=== PATIENT | male | born 1995 | race Caucasian/White ===

== ENCOUNTER 2022-07-21 01:47 | Emergency (ER) | payer OTHER ==
[2022-07-21 01:56] VITALS: O2SAT 96
--- NOTE | 2022-07-21 02:35 | ERPHSYRPT ---
- History of Present Illness Time Seen by Provider: 07/21/22 02:10 Source: patient, family Exam Limitations: no limitations Patient Subjective Stated Complaint: fever since 08/05/22 with PICC insertion, PICC line removed 07/20/22 and is having pain where PICC line was. Triage Nursing Assessment: pt brought into ER via wheelchair. Pt c/o rt arm/shoulder pain from picc line that was removed today. Pt had PICC line in for IV infusion due to rt foot injury/wound. Pt had been running fever ever since PICC line placement on 08/05/22 but is afebrile at this time. Rt upper arm/shoulder is tender. Pt is nauseated. Physician History: This is a 26-year-old white male who had a PICC line in place for a few weeks for infusion of antibiotic to treat a wound on the bottom of his right foot that was removed yesterday after receiving a dose of antibiotics. It was removed because the patient was having pain in the distribution site of the PICC line. It is unknown if the tip of the PICC line was cultured at the time of removal. Patient specifically states he does not want any pain medicine. He just is concerned that there is something going on in his chest and in the distribution side of the PICC line. Patient has a prescription from his infectious disease physician to have blood cultures x2 drawn and a urinalysis with a urine culture. 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 Allergies/Adverse Reactions: No Known Drug Allergies Allergy (Verified 07/21/22 02:19) Home Medications: Amlodipine Besylate 1 tab PO DAILY 07/21/22 [History] Hx Tetanus, Diphtheria Vaccination/Date Given: Yes Hx Influenza Vaccination/Date Given: No Hx Pneumococcal Vaccination/Date Given: No Immunizations Up to Date: Yes Travel Risk - International Travel Have you traveled outside of the country in past 3 weeks: No - Coronavirus Screening Are you exhibiting any of the following symptoms?: Yes Symptoms: Fever Close contact with a COVID-19 positive Pt in past 14-21 Days: No - Vaccine Status Have you recieved a Covid-19 vaccination: No - Review of Systems Constitutional: No Symptoms Eyes: No Symptoms Ears, Nose, & Throat: No Symptoms Respiratory: No Symptoms Cardiac: No Symptoms Abdominal/Gastrointestinal: No Symptoms Genitourinary Symptoms: No Symptoms Musculoskeletal: No Symptoms Skin: Other (Skin tenderness along the distribution site of the former PICC line in the right upper extremity) Neurological: No Symptoms Psychological: No Symptoms Endocrine: No Symptoms Hematologic/Lymphatic: No Symptoms Immunological/Allergic: No Symptoms All Other Systems: Reviewed and Negative - Past Medical History Pertinent Past Medical History: No Neurological History: No Pertinent History ENT History: No Pertinent History Cardiac History: Hypertension Respiratory History: No Pertinent History Endocrine Medical History: No Pertinent History Musculoskeletal History: Fractures GI Medical History: No Pertinent History History: No Pertinent History Psycho-Social History: No Pertinent History Male Reproductive Disorders: No Pertinent History Other Medical History: HEART MURMUR, Fx to rt foot, wound to rt foot - Past Surgical History Past Surgical History: Yes Neuro Surgical History: No Pertinent History Cardiac: No Pertinent History Respiratory: No Pertinent History Gastrointestinal: No Pertinent History Genitourinary: No Pertinent History Musculoskeletal: No Pertinent History Male Surgical History: No Pertinent History Other Surgical History: PICC Line - Social History Smoking Status: Never smoker Exposure to second hand smoke: Yes Drug Use: none Patient Lives Alone: No - Nursing Vital Signs Nursing Vital Signs: Initial Vital Signs Temperature 98.7 F 07/21/22 01:53 Pulse Rate 134 H 07/21/22 01:53 Respiratory Rate 20 07/21/22 01:53 Blood Pressure 170/106 07/21/22 01:53 O2 Sat by Pulse Oximetry 96 07/21/22 01:53 Pain Scale Pain Intensity 8 - Physical Exam General Appearance: no apparent distress, alert, other (Angry and frustrated) Eye Exam: PERRL/EOMI, eyes nml inspection ENT Exam: normal ENT inspection, no apparent trauma, hearing grossly normal Neck Exam: normal inspection, non-tender, supple, full range of motion Respiratory Exam: normal breath sounds, chest non-tender, lungs clear, no respiratory distress, no accessory muscle use, No respiratory distress Cardiovascular/Chest Exam: normal heart sounds, regular rate/rhythm Gastrointestinal/Abdominal Exam: soft, non tender, no distention, no mass, no guarding, no ecchymosis, no organomegaly, no pulsatile mass, normal bowel sounds Rectal Exam: not done Extremity Exam: normal range of motion, normal inspection, normal capillary refill, no calf tenderness, no pedal edema, pelvis stable Neurologic Exam: alert, oriented x 3, cooperative, clinical documentation specialist II-XII nml as tested Skin Exam: other (Tender skin overlying the distribution of the former PICC line site) Lymphatic: No adenopathy SpO2 Interpretation: normal SpO2: 96 O2 Delivery: Room Air Ordered Tests: Active Orders 24 hr Category Date Time Status CHEST 1 VIEW (PORTABLE) Stat Exams 07/21/22 02:39 Taken BLOOD CULTURE Stat Lab 07/21/22 02:45 Received CULTURE,URINE Stat Lab 07/21/22 02:51 Ordered UA W/RFX CULTURE Stat Lab 07/21/22 02:51 Ordered - Progress Progress: unchanged Counseled pt/family regarding: lab results, diagnosis, need for follow-up, rad results - Departure Departure Disposition: Home Clinical Impression: Right upper limb pain Condition: Stable Critical Care Time: No Referrals: DOCTOR,NO FAMILY [Primary Care Provider] - Follow up/PCP as directed Additional Instructions: Return to the hospital at your scheduled infusion time. Follow-up today at 1030 in the radiology department for an ultrasound of your right upper extremity. Take all your other medication as prescribed. Follow-up with Dr. Toro for the results of the ultrasound.
[2022-07-21 03:01] VITALS: BP 157/101; PULSE 130
[2022-07-21 03:12] LABS: Appearance CLEAR (CLEAR); Bilirubin NEGATIVE (NEGATIVE); Dipstick done @ ? MAIN LAB; Glucose NEGATIVE (NEGATIVE); Ketones NEGATIVE (NEGATIVE); Nitrite NEGATIVE (NEGATIVE); Protein,Urine Dip 100 (Negative); RBC TRACE-LYSED Ery/ul (0-5); Specific Gravity <=1.005 (1.005-1.025); Urobilinogen 4 mg/dL (0-1)
[2022-07-21 03:15] LABS: RBC 0-2 /HPF (0-2); WBC 0-2 /HPF (0-5)
[2022-07-21 03:16] LABS: Bacteria NONE SEEN /HPF (NEGATIVE); Urine Cultured Indicated? ORDERED SEPARATELY
--- NOTE | 2022-07-21 09:09 | XRAY ---
Indication: Right upper extremity pain and swelling following PICC line removal. Comparison: None Portable apical lordotic chest demonstrates normal heart, lungs, and bony thorax with incidental mediastinal calcified node. Comment: Preliminary interpretation made by [facility]. No critical discrepancy.
== END 2022-07-21 03:00 | disposition home or self-care (01) ==
LOC: ED 01:47
DX: M79.621 Pain in right upper arm (principal); I10 Essential (primary) hypertension; Z79.899 Other long term (current) drug therapy; Z28.310 Unvaccinated for COVID-19
CPT/HCPCS: 36415; 71045; 81015; 87040; 87086; 99283

== ENCOUNTER 2022-08-17 17:37 | Emergency (ER) | payer OTHER ==
--- NOTE | 2022-08-17 18:08 | ERPHSYRPT ---
- History of Present Illness Time Seen by Provider: 08/17/22 18:08 Source: patient Exam Limitations: no limitations Physician History: This is a 26-year-old white male patient with history of hypertension and chronic right foot infection who presents with concerns that he might be dehydrated. This patient has a chronic infection issue and the PICC line in place for chronic antibiotic therapy. Patient received antibiotics today and his infectious disease doctor's office. He has an appointment to see his infectious disease doctor tomorrow as well as an appointment to see is tank processor tomorrow to evaluate the foot wound. Patient presents with jaundice and he is aware of this. Patient only wants a liter of normal saline infused into his PICC line. He does not want any labs drawn or urinalysis done. He does not want any work-up. Timing/Duration: today Severity: mild Associated Symptoms: other (Jaundice) Allergies/Adverse Reactions: No Known Drug Allergies Allergy (Verified 07/21/22 02:19) Home Medications: Amlodipine Besylate 1 tab PO DAILY 07/21/22 [History] Hx Tetanus, Diphtheria Vaccination/Date Given: Yes Hx Influenza Vaccination/Date Given: No Hx Pneumococcal Vaccination/Date Given: No Travel Risk - International Travel Have you traveled outside of the country in past 3 weeks: No - Coronavirus Screening Are you exhibiting any of the following symptoms?: No Close contact with a COVID-19 positive Pt in past 14-21 Days: No - Vaccine Status Have you recieved a Covid-19 vaccination: No - Review of Systems Constitutional: No Symptoms Eyes: No Symptoms Respiratory: No Symptoms Cardiac: No Symptoms Abdominal/Gastrointestinal: No Symptoms Genitourinary Symptoms: No Symptoms Musculoskeletal: No Symptoms Skin: Other (Jaundice) Neurological: No Symptoms Psychological: No Symptoms Endocrine: No Symptoms Hematologic/Lymphatic: No Symptoms Immunological/Allergic: No Symptoms All Other Systems: Reviewed and Negative - Past Medical History Pertinent Past Medical History: No Neurological History: No Pertinent History ENT History: No Pertinent History Cardiac History: Hypertension Respiratory History: No Pertinent History Endocrine Medical History: No Pertinent History Musculoskeletal History: Fractures GI Medical History: No Pertinent History History: No Pertinent History Psycho-Social History: No Pertinent History Male Reproductive Disorders: No Pertinent History Other Medical History: HEART MURMUR, Fx to rt foot, wound to rt foot - Past Surgical History Past Surgical History: Yes Neuro Surgical History: No Pertinent History Cardiac: No Pertinent History Respiratory: No Pertinent History Gastrointestinal: No Pertinent History Genitourinary: No Pertinent History Musculoskeletal: No Pertinent History Male Surgical History: No Pertinent History Other Surgical History: PICC Line - Social History Smoking Status: Never smoker Exposure to second hand smoke: Yes Drug Use: none Patient Lives Alone: No - Nursing Vital Signs Nursing Vital Signs: Initial Vital Signs Temperature 99 F 08/17/22 18:08 Pulse Rate 123 H 08/17/22 18:08 Respiratory Rate 20 08/17/22 18:08 Blood Pressure 142/94 08/17/22 18:08 O2 Sat by Pulse Oximetry 96 08/17/22 18:08 Pain Scale Pain Intensity 0 - Physical Exam General Appearance: no apparent distress, alert Eye Exam: other (Patient did not want to remove his sunglasses during the evaluation) Ears, Nose, Throat Exam: normal ENT inspection, dry mucous membranes Neck Exam: normal inspection, non-tender, supple, full range of motion Respiratory Exam: airway intact, No chest tenderness, No respiratory distress Cardiovascular Exam: tachycardia Gastrointestinal/Abdomen Exam: No tenderness Rectal Exam: not done Back Exam: normal inspection, normal range of motion, No CVA tenderness, No vertebral tenderness Extremity Exam: normal inspection, normal range of motion, pelvis stable Neurologic Exam: alert, oriented x 3, 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-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 as tested, normal mood/affect, nml cerebellar function, nml station & gait, sensation nml Skin Exam: jaundice Lymphatic Exam: No adenopathy SpO2 Interpretation: normal O2 Delivery: Room Air - Course Nursing assessment & vital signs reviewed: Yes Ordered Tests: Medication Summary Generic Name Dose Route Start Last Admin Trade Name Freq PRN Reason Stop Dose Admin Sodium Chloride 1,000 mls @ 999 mls/hr 08/17/22 18:26 08/17/22 18:33 Sodium Chloride 0.9% 1000 Ml IV 08/17/22 19:26 999 mls/hr .Q1H1M STA Administration Discontinued Medications Generic Name Dose Route Start Last Admin Trade Name Freq PRN Reason Stop Dose Admin Sodium Chloride Confirm 08/17/22 18:32 Sodium Chloride 0.9% 1000 Ml Administered 08/17/22 18:33 Dose 1,000 mls @ ud .ROUTE .STK-MED ONE - Progress Progress: unchanged Progress Note: 08/17/22 18:58 Medical decision making: This patient only wants intravenous fluids. I think this is a reasonable request. I am having him sign refusal of lab draws or urinalysis. I am also having him sign a form for refusal of any other intervention other than providing him with a liter of normal saline solution. Patient and patient's mother assured us that the patient has an appointment to see his infectious disease specialist tomorrow as well as having an appointment tomorrow to see his tank processor for wound evaluation. He is aware that without full work-up he is putting himself at risk because we cannot determine his current kidney function, electrolyte values or his liver function values. He understands the risks and signed the refusal of further work-up. 08/17/22 18:59 Counseled pt/family regarding: diagnosis, need for follow-up - Departure Departure Disposition: Home Clinical Impression: Jaundice, Dehydration, mild Condition: Stable Critical Care Time: No Referrals: DOCTOR,NO FAMILY [Primary Care Provider] - Follow up/PCP as directed Additional Instructions: Drink plenty of fluids. Take all your medication as prescribed. Follow-up with your infectious disease specialist tomorrow. Follow-up with your tank processor tomorrow.
[2022-08-17 18:14] VITALS: BP 142/94; PULSE 123; O2SAT 96
[2022-08-17] MEDS ORDERED: Sodium Chloride 0.9% 1000 ML 1,000 ML ONE (18:32)
[2022-08-17] MEDS: Sodium Chloride 0.9% 1000 ML 1,000 ML IV STA (18:33)
== END 2022-08-17 19:46 | disposition home or self-care (01) ==
LOC: ED 17:37
DX: E86.0 Dehydration (principal); R17 Unspecified jaundice; I10 Essential (primary) hypertension; Z79.899 Other long term (current) drug therapy; Z28.310 Unvaccinated for COVID-19
CPT/HCPCS: 96360; 99283; J1642

== ENCOUNTER 2022-08-19 19:53 | Emergency (ER) | payer OTHER ==
--- NOTE | 2022-08-19 20:05 | ERPHSYRPT ---
- History of Present Illness Time Seen by Provider: 08/19/22 20:05 Source: patient, family Exam Limitations: no limitations Physician History: This is a 26-year-old white male has a history of alcoholic induced cirrhosis/jaundice who also has been treated for osteomyelitis by infectious disease physician Dr. Ross and crush injury of the right foot by Dr. Lucero. Patient states that he feels better now than he did when he was seen here approximately 2 days ago. He received a liter of fluid infusion and did not want anything else done. Per patient and patient's mother's report the office of Dr. Morrell contacted them and said that he needed to go to an emergency room and get his kidneys and liver was flushed. Patient was not sure what that meant and neither am I. I contacted Dr. Morrell per patient's mom, because that is whose office call them. Dr. Morrell stated that Dr. Ross, the infectious disease doctor communicated with him stating the same. However he did not specify [facility] emergency department. The patient is agreeing to a liter of IV fluid infusion and obtaining lab draws. He is not going to agree to anything else until after the lab results return. Timing/Duration: other Severity: moderate Modifying Factors: Improves With: nothing Associated Symptoms: denies symptoms Allergies/Adverse Reactions: No Known Drug Allergies Allergy (Verified 07/21/22 02:19) Home Medications: Amlodipine Besylate 1 tab PO DAILY 07/21/22 [History] Hx Tetanus, Diphtheria Vaccination/Date Given: Yes Hx Influenza Vaccination/Date Given: No Hx Pneumococcal Vaccination/Date Given: No Travel Risk - International Travel Have you traveled outside of the country in past 3 weeks: No - Coronavirus Screening Are you exhibiting any of the following symptoms?: No Close contact with a COVID-19 positive Pt in past 14-21 Days: No - Vaccine Status Have you recieved a Covid-19 vaccination: No - Review of Systems Constitutional: No Symptoms Eyes: No Symptoms, Other (Obvious scleral icterus) Ears, Nose, & Throat: No Symptoms Respiratory: No Symptoms Cardiac: No Symptoms Abdominal/Gastrointestinal: No Symptoms Genitourinary Symptoms: No Symptoms Musculoskeletal: Injury (Chronic right foot) Skin: Other (Obvious jaundice) Neurological: No Symptoms Psychological: No Symptoms Endocrine: No Symptoms Hematologic/Lymphatic: No Symptoms Immunological/Allergic: No Symptoms All Other Systems: Reviewed and Negative - Past Medical History Pertinent Past Medical History: No Neurological History: No Pertinent History ENT History: No Pertinent History Cardiac History: Hypertension Respiratory History: No Pertinent History Endocrine Medical History: No Pertinent History Musculoskeletal History: Fractures GI Medical History: No Pertinent History History: No Pertinent History Psycho-Social History: No Pertinent History Male Reproductive Disorders: No Pertinent History Other Medical History: HEART MURMUR, Fx to rt foot, wound to rt foot - Past Surgical History Past Surgical History: Yes Neuro Surgical History: No Pertinent History Cardiac: No Pertinent History Respiratory: No Pertinent History Gastrointestinal: No Pertinent History Genitourinary: No Pertinent History Musculoskeletal: No Pertinent History Male Surgical History: No Pertinent History Other Surgical History: PICC Line - Social History Smoking Status: Never smoker Exposure to second hand smoke: Yes Drug Use: none Patient Lives Alone: No - Nursing Vital Signs Nursing Vital Signs: Initial Vital Signs Pulse Rate 123 H 08/19/22 19:57 Respiratory Rate 18 08/19/22 19:57 Blood Pressure 167/99 08/19/22 19:57 O2 Sat by Pulse Oximetry 99 08/19/22 19:57 Pain Scale Pain Intensity 0 - Physical Exam General Appearance: no apparent distress, alert Eye Exam: PERRL/EOMI, scleral icterus Ears, Nose, Throat Exam: normal ENT inspection, moist mucous membranes Neck Exam: normal inspection, non-tender, supple, full range of motion Respiratory Exam: normal breath sounds, lungs clear, airway intact, No chest tenderness, No respiratory distress Cardiovascular Exam: tachycardia Gastrointestinal/Abdomen Exam: soft, normal bowel sounds, No tenderness Rectal Exam: not done Back Exam: normal inspection, normal range of motion, No CVA tenderness, No vertebral tenderness Neurologic Exam: alert, oriented x 3, cooperative, dragger II-XII nml as tested, normal mood/affect, nml cerebellar function, nml station & gait, sensation nml Skin Exam: jaundice Lymphatic Exam: No adenopathy SpO2 Interpretation: normal O2 Delivery: Room Air - Course Nursing assessment & vital signs reviewed: Yes Ordered Tests: Active Orders 24 hr Category Date Time Status AMA [Release AMA] OM.NOW Care 08/19/22 21:21 Active IV Insertion STAT Care 08/19/22 20:23 Active CBC W DIFF Stat Lab 08/19/22 20:30 Completed CMP Stat Lab 08/19/22 20:30 Completed Medication Summary Generic Name Dose Route Start Last Admin Trade Name Arturo PRN Reason Stop Dose Admin Lactulose 20 g 08/19/22 21:22 Lactulose 10 G/15 Ml Ml PO 08/19/22 21:23 STAT ONE Discontinued Medications Generic Name Dose Route Start Last Admin Trade Name Arturo PRN Reason Stop Dose Admin Sodium Chloride 1,000 mls @ 999 mls/hr 08/19/22 20:23 08/19/22 20:30 Sodium Chloride 0.9% 1000 Ml IV 08/19/22 21:23 999 mls/hr .Q1H1M STA Administration Sodium Chloride Confirm 08/19/22 20:29 Sodium Chloride 0.9% 1000 Ml Administered 08/19/22 20:30 Dose 1,000 mls @ ud .ROUTE .STK-MED ONE Lab/Rad Data: Laboratory Result Diagrams 08/19/22 20:30 08/19/22 20:30 Laboratory Results 08/19/22 08/19/22 08/19/22 Range/Units 20:30 20:30 20:30 WBC 12.6 H (4.0-10.5) x10^3/uL RBC 3.62 L (4.1-5.6) x10^6/uL Hgb 11.5 L (12.5-18.0) g/dL Hct 33.7 L (42-50) % MCV 93.1 (78-100) fL MCH 31.8 (26-32) pg MCHC 34.1 (32-36) g/dL RDW 20.5 H (11.5-14.0) % Plt Count 223 (150-450) x10^3/uL MPV 11.0 (7.5-11.0) fL Gran % 73.5 H (36.0-66.0) % Immature Gran % (Auto) 2.1 H (0.00-0.4) % Nucleat RBC Rel Count 0.0 (0.00-0.1) % Eos # (Auto) 0.50 (0-0.5) x10^3/uL Immature Gran # (Auto) 0.26 H (0.00-0.03) x10^3u/L Absolute Lymphs (auto) 1.09 (1.0-4.6) x10^3/uL Absolute Monos (auto) 1.29 (0.0-1.3) x10^3/uL Absolute Nucleated RBC 0.00 (0.00-0.01) x10^3u/L Lymphocytes % 8.7 L (24.0-44.0) % Monocytes % 10.3 (0.0-12.0) % Eosinophils % 4.0 (0.00-5.0) % Basophils % 1.4 (0.0-0.4) % Absolute Granulocytes 9.25 H (1.4-6.9) x10^3/uL Basophils # 0.17 (0-0.4) x10^3/uL Sodium 133 L (137-145) mmol/L Potassium 5.6 H (3.5-5.1) mmol/L Chloride 102 (98-107) mmol/L Carbon Dioxide 23 (22-30) mmol/L Anion Gap 14.0 (5-15) MEQ/L BUN 6 L (9-20) mg/dL Creatinine 0.59 L (0.66-1.25) mg/dL Estimated GFR > 60.0 ML/MIN Glucose 98 (74-106) mg/dL Calcium 9.0 (8.4-10.2) mg/dL Total Bilirubin 38.50 H (0.2-1.3) mg/dL AST 137 H (17-59) U/L ALT 41 (0-50) U/L Alkaline Phosphatase 205 H (38-126) U/L Ammonia 85 H (9-30) umol/L Serum Total Protein 8.1 (6.3-8.2) g/dL Albumin 4.1 (3.5-5.0) g/dL - Progress Progress: improved, re-examined Progress Note: 08/19/22 21:24 Medical decision making: This patient clinically says he is feeling better. His mother agrees. However, the patient's total bilirubin is 38 compared to a level approximately 4 on 08/02/2022. Patient has an ammonia level of 85. I voiced my concern to the patient and to his mother that patient would be best served to being admitted into the hospital or transferred to another facility. The patient does not want to be admitted or transferred to another facility. He stated that he would "deal with it on Monday". He will sign AGAINST MEDICAL ADVICE/refusal of care form. I will write for lactulose to give him a dose here and sent a prescription to his pharmacy. I will also send a prescription for repeat CMP and ammonia level on 08/21/2022. - Departure Departure Disposition: AMA Clinical Impression: Hyperammonemia, Hyperbilirubinemia Condition: Stable Critical Care Time: No Referrals: DOCTOR,NO FAMILY [Primary Care Provider] - Follow up/PCP as directed Additional Instructions: Return to the emergency department if symptoms worsen. Take your medication as prescribed. Return to the [facility] laboratory to have your blood drawn on the morning of 08/21/2022. Wait for your results outside the emergency department.
[2022-08-19] MEDS ORDERED: Sodium Chloride 0.9% 1000 ML 1,000 ML IV STA (20:23)
[2022-08-19] MEDS ORDERED: Sodium Chloride 0.9% 1000 ML 1,000 ML ONE (20:29)
[2022-08-19 20:44] LABS: Absolute Neutrophil Ct (ANC) 9.25 x10^3/uL (1.4-6.9); Basophil (Absolute #) 0.17 x10^3/uL (0-0.4); Hematocrit 33.7 % (42-50); Hemoglobin 11.5 g/dL (12.5-18.0); Lymphocyte (Absolute #) 1.09 x10^3/uL (1.0-4.6); Lymphocytes % 8.7 % (24.0-44.0); Mean Cell Volume 93.1 fL (78-100); Mean Corpuscular Hemoglobin 31.8 pg (26-32); Mean Corpuscular Hgb Concent. 34.1 g/dL (32-36); Monocyte (Absolute #) 1.29 x10^3/uL (0.0-1.3); Monocytes % 10.3 % (0.0-12.0); Neutrophil % 73.5 % (36.0-66.0); Platelet Count 223 x10^3/uL (150-450); Red Blood Count 3.62 x10^6/uL (4.1-5.6); Red Cell Distribution Width 20.5 % (11.5-14.0); White Blood Count 12.6 x10^3/uL (4.0-10.5)
[2022-08-19 20:50] LABS: ALBUMIN 4.1 g/dL (3.5-5.0); ALKALINE PHOSPHATASE 205 U/L (38-126); BLOOD UREA NITROGEN 6 mg/dL (9-20); CHLORIDE 102 mmol/L (98-107); Carbon Dioxide 23 mmol/L (22-30); Creatinine 1 0.59 mg/dL (0.66-1.25); EST GLOMERULAR FILTRATION RATE > 60.0 ML/MIN; Glucose 98 mg/dL (74-106); SGOT/AST 137 U/L (17-59); SGPT/ALT 41 U/L (0-50); SODIUM 133 mmol/L (137-145); Total Protein 8.1 g/dL (6.3-8.2)
[2022-08-19 20:58] LABS: Potassium 5.6 mmol/L (3.5-5.1)
[2022-08-19 21:00] VITALS: PULSE 116; O2SAT 97
[2022-08-19 21:03] VITALS: BP 133/93
[2022-08-19] MEDS ORDERED: Enulose 10 GM/15 ML PO ONE (21:22)
[2022-08-19] MEDS ORDERED: LACTULOSE 20 GM/30ML UD CUP ONE (21:28)
[2022-08-19] MEDS ORDERED: LACTULOSE 20 GM/30ML UD CUP PO SCH (22:00)
== END 2022-08-19 21:49 | disposition left against medical advice (07) ==
LOC: ED 19:53
DX: E72.20 Disorder of urea cycle metabolism, unspecified (principal); E80.6 Other disorders of bilirubin metabolism; I10 Essential (primary) hypertension; K70.30 Alcoholic cirrhosis of liver without ascites; Z79.899 Other long term (current) drug therapy; Z28.310 Unvaccinated for COVID-19
CPT/HCPCS: 36000; 36415; 80053; 82140; 85025; 96360; 96374; 99284; J1642; A9270-GY

== ENCOUNTER 2022-08-28 16:05 | Emergency (ER) | payer OTHER ==
[2022-08-28] MEDS ORDERED: Sodium Chloride 0.9% 1000 ML 1,000 ML IV STA (16:24)
[2022-08-28 16:35] VITALS: BP 139/81; PULSE 119; O2SAT 98
[2022-08-28] MEDS ORDERED: Sodium Chloride 0.9% 1000 ML 1,000 ML ONE (16:36)
[2022-08-28] MEDS ORDERED: Vitamin K 10 MG/ML IV ONE (16:43)
--- NOTE | 2022-08-28 16:48 | ERPHSYRPT ---
- History of Present Illness Patient Subjective Stated Complaint: Pt popped a pimple on his left shoulder that began bleeding over 2 hours ago and wouldn't stop Triage Nursing Assessment: Pt brought to the ER by his mother, santos chandler, denies pain, pts skin is yellow and jaundiced which he states is from an antibiotic he has been getting through a PICC line, pt has stopped the antibiotic and his liver enzymes are elevated and his blood will not clot, left shoulder has a pinpoint spot that is continually dripping out blood and soaking bandages Physician History: Pt popped a pimple on his left shoulder that began bleeding over 2 hours ago and wouldn't stop Patient is 26-year-old male came to the emergency room with continuous bleeding on his left around shoulder area after he picked on one of the pimple he has. Patient has been bleeding for almost 2 hours. Patient has continuous oozing of the blood from the pimple area where he picked on. Recently patient had a osteomyelitis of his foot and for which patient underwent IV infusion of daptomycin since then patient has become jaundiced and his liver enzymes has been elevated. Patient is otherwise feeling okay denies any other bleeding in the stool or urine. Patient states that his skin is jaundiced. Patient denies any fever chills nausea or vomiting. Timing/Duration: today Severity: moderate Associated Symptoms: denies symptoms Allergies/Adverse Reactions: No Known Drug Allergies Allergy (Verified 08/28/22 16:35) Home Medications: Amlodipine Besylate 1 tab PO DAILY 07/21/22 [History] Hx Tetanus, Diphtheria Vaccination/Date Given: Yes Hx Influenza Vaccination/Date Given: No Hx Pneumococcal Vaccination/Date Given: No Travel Risk - International Travel Have you traveled outside of the country in past 3 weeks: No - Coronavirus Screening Are you exhibiting any of the following symptoms?: No Close contact with a COVID-19 positive Pt in past 14-21 Days: No - Vaccine Status Have you recieved a Covid-19 vaccination: No - Review of Systems Constitutional: No Fever, No Chills Eyes: No Symptoms, Other (yellow conjunctiva) Ears, Nose, & Throat: No Symptoms Respiratory: No Cough, No Dyspnea Cardiac: No Chest Pain, No Edema, No Syncope Abdominal/Gastrointestinal: No Abdominal Pain, No Nausea, No Vomiting, No Diarrhea Genitourinary Symptoms: No Dysuria Musculoskeletal: No Back Pain, No Neck Pain Skin: No Rash Neurological: No Dizziness, No Focal Weakness, No Sensory Changes Psychological: No Symptoms Endocrine: No Symptoms Hematologic/Lymphatic: Easy Bleeding Immunological/Allergic: No Symptoms All Other Systems: Reviewed and Negative - Past Medical History Pertinent Past Medical History: No Neurological History: No Pertinent History ENT History: No Pertinent History Cardiac History: Hypertension Respiratory History: No Pertinent History Endocrine Medical History: No Pertinent History Musculoskeletal History: Fractures GI Medical History: No Pertinent History History: No Pertinent History Psycho-Social History: No Pertinent History Male Reproductive Disorders: No Pertinent History Other Medical History: HEART MURMUR, Fx to rt foot, wound to rt foot - Past Surgical History Past Surgical History: Yes Neuro Surgical History: No Pertinent History Cardiac: No Pertinent History Respiratory: No Pertinent History Gastrointestinal: No Pertinent History Genitourinary: No Pertinent History Musculoskeletal: No Pertinent History Male Surgical History: No Pertinent History Other Surgical History: PICC Line - Social History Smoking Status: Never smoker Exposure to second hand smoke: Yes Drug Use: none Patient Lives Alone: No - Nursing Vital Signs Nursing Vital Signs: Initial Vital Signs Temperature 99.7 F 08/28/22 16:21 Pulse Rate 119 H 08/28/22 16:21 Blood Pressure 139/81 08/28/22 16:21 O2 Sat by Pulse Oximetry 98 08/28/22 16:21 Pain Scale Pain Intensity 0 - Physical Exam General Appearance: no apparent distress, alert Eye Exam: PERRL/EOMI, eyes nml inspection Ears, Nose, Throat Exam: normal ENT inspection, TMs normal, pharynx normal, moist mucous membranes Neck Exam: normal inspection, non-tender, supple, full range of motion Respiratory Exam: normal breath sounds, lungs clear, No respiratory distress Cardiovascular Exam: regular rate/rhythm, normal heart sounds, normal peripheral pulses Gastrointestinal/Abdomen Exam: soft, normal bowel sounds, hepatomegaly, No tenderness, No mass Back Exam: normal inspection, normal range of motion, No CVA tenderness, No vertebral tenderness Extremity Exam: normal inspection, normal range of motion, pelvis stable, other (bleeding from pimple on left shoulder) Neurologic Exam: alert, oriented x 3, cooperative, normal mood/affect, nml cerebellar function, nml station & gait, sensation nml, No motor deficits Skin Exam: normal color, warm, dry, No rash Lymphatic Exam: No adenopathy SpO2 Interpretation: normal SpO2: 98 O2 Delivery: Room Air - Course Nursing assessment & vital signs reviewed: Yes Ordered Tests: Active Orders 24 hr Category Date Time Status CBC W DIFF Stat Lab 08/28/22 16:46 Completed CMP Stat Lab 08/28/22 16:46 Completed PT INR [PROTIME WITH INR] Stat Lab 08/28/22 17:34 Ordered Medication Summary Discontinued Medications Generic Name Dose Route Start Last Admin Trade Name Freq PRN Reason Stop Dose Admin Sodium Chloride 1,000 mls @ 999 mls/hr 08/28/22 16:24 08/28/22 16:37 Sodium Chloride 0.9% 1000 Ml IV 08/28/22 17:24 999 mls/hr .Q1H1M STA Administration Sodium Chloride Confirm 08/28/22 16:36 Sodium Chloride 0.9% 1000 Ml Administered 08/28/22 16:37 Dose 1,000 mls @ ud .ROUTE .STK-MED ONE Phytonadione 10 mg 08/28/22 16:43 08/28/22 17:00 Phytonadione 10 Mg/Ml Amp IV 08/28/22 16:44 10 mg STAT ONE Administration Phytonadione Confirm 08/28/22 16:50 Phytonadione 10 Mg/Ml Amp Administered 08/28/22 16:51 Dose 10 mg .ROUTE .STK-MED ONE Lab/Rad Data: Laboratory Result Diagrams 08/28/22 16:46 08/28/22 16:46 Laboratory Results 08/28/22 08/28/22 Range/Units 16:46 16:46 WBC 21.1 H (4.0-10.5) x10^3/uL RBC 3.62 L (4.1-5.6) x10^6/uL Hgb 11.5 L (12.5-18.0) g/dL Hct 34.0 L (42-50) % MCV 93.9 (78-100) fL MCH 31.8 (26-32) pg MCHC 33.8 (32-36) g/dL RDW 20.3 H (11.5-14.0) % Plt Count 261 (150-450) x10^3/uL MPV 10.7 (7.5-11.0) fL Gran % 80.7 H (36.0-66.0) % Immature Gran % (Auto) 3.3 H (0.00-0.4) % Nucleat RBC Rel Count 0.0 (0.00-0.1) % Eos # (Auto) 0.52 H (0-0.5) x10^3/uL Immature Gran # (Auto) 0.70 H (0.00-0.03) x10^3u/L Absolute Lymphs (auto) 1.36 (1.0-4.6) x10^3/uL Absolute Monos (auto) 1.27 (0.0-1.3) x10^3/uL Absolute Nucleated RBC 0.00 (0.00-0.01) x10^3u/L Lymphocytes % 6.5 L (24.0-44.0) % Monocytes % 6.0 (0.0-12.0) % Eosinophils % 2.5 (0.00-5.0) % Basophils % 1.0 (0.0-0.4) % Absolute Granulocytes 16.98 H (1.4-6.9) x10^3/uL Basophils # 0.22 (0-0.4) x10^3/uL Sodium 135 L (137-145) mmol/L Potassium 4.6 (3.5-5.1) mmol/L Chloride 102 (98-107) mmol/L Carbon Dioxide 23 (22-30) mmol/L Anion Gap 14.8 (5-15) MEQ/L BUN 4 L (9-20) mg/dL Creatinine 0.60 L (0.66-1.25) mg/dL Estimated GFR > 60.0 ML/MIN Glucose 101 (74-106) mg/dL Calcium 8.6 (8.4-10.2) mg/dL Total Bilirubin 36.90 H (0.2-1.3) mg/dL AST 193 H (17-59) U/L ALT 56 H (0-50) U/L Alkaline Phosphatase 299 H (38-126) U/L Serum Total Protein 8.2 (6.3-8.2) g/dL Albumin 4.1 (3.5-5.0) g/dL - Progress Progress: improved Progress Note: 08/28/22 17:43 bleeding stopped. Counseled pt/family regarding: lab results, diagnosis, need for follow-up - Departure Departure Disposition: Home Clinical Impression: Hyperbilirubinemia, Bleeding diathesis Condition: Stable Critical Care Time: Yes Critical Care Time(excluding separately billable procedures): Critical 30-74 mins Referrals: DOCTOR,NO FAMILY [Primary Care Provider] - Follow up/PCP as directed TAY WALSH [NON-STAFF PHY W/O PRIVILEGES] - Follow Up with PCP/3 days Additional Instructions: Discharge/Care Plan ALFONSO BETTS JR was seen on 08/28/22 in the Emergency Room. The patient was counseled regarding Diagnosis,Lab results, Imaging studies, need for follow up and when to return to the Emergency Room. Prescriptions given: Discharge Note I have spoken with the patient and/or caregivers. I have explained the patient's condition, diagnosis and treatment plan based on the information available to me at this time. I have answered the patient's and/or caregiver's questions and addressed any concerns. The patient and/or caregivers have as good understanding of the patient's diagnosis, condition and treatment plan as can be expected at this point. The vital signs have been stable. The patient's condition is stable and appropriate for discharge from the emergency department. The patient will pursue further outpatient evaluation with the primary care physician or other designated or consulting physician as outlined in the discharge instructions. The patient and/or caregivers are agreeable to this plan of care and follow-up instructions have been explained in detail. The patient and/or caregivers have received these instruction. The patient/and or caregivers are aware that any significant change in condition or worsening of symptoms should prompt an immediate return to this or the closest emergency department or call 911. ALFONSO BETTS JR was seen on 08/28/22 n the Emergency Room. At that time you were treated for an emergent condition, during your visit Laboratory, Radiology and/or other procedures may have been ordered. It is very important that you follow-up with your Primary Care Physician NO FAMILY DOCTOR within the next 24- 48 hours to review your Emergency Room visit and the final results of testing that was ordered. Some test results such as Urine Cultures, Blood Cultures, and other cultures if ordered will not be finalized for 24-48 hours. If you do not have a Primary Care Provider please call the medical records department at [phone] ext [phone] to obtain a copy of your results or you may sign into our patient portal to obtain these results by visiting us @ [email or web address] and completing the following steps: 1. Click on the Patient Portal link 2. Click the Patient Self Enrollment Link to complete the enrollment form and entering your 3. Once the enrollment form is completed you will receive an email with a temporary ID and password at the email address you provided. 4. Next choose a user name and password. Your user name must be at least 4 characters long and your password must be at least 4 characters long. 5. Choose a security question from the list and provide your answer to the question. If you already have signed into the Health Portal you may access your Health Care Information 08/05 by the following steps: 1. Login to our website @ [email or web address] 2. Enter your original user name and password. FAQS The [facility] Health Portal is an online tool that contains your Lab Results, Radiology Reports, Visit History, Discharge Instructions and Health Summary Lab and Radiology Results will not be available for 72 hours on the portal. The Portal is a secure site, passwords are encryted and URLs are re-written so they cannot be copied and pasted. You and authorized family members are the only ones who can access your Portal. Also there is a timeout feature that protects your information if you leave the Portal page open. If you have technical difficulty please use the Contact Us link on the page this will allow you to submit any questions you have regarding the Portal or you may contact the Medical Record Department at [phone] ext [phone].
[2022-08-28 16:50] LABS: Absolute Neutrophil Ct (ANC) 16.98 x10^3/uL (1.4-6.9); Basophil (Absolute #) 0.22 x10^3/uL (0-0.4); Eosinophil % 2.5 % (0.00-5.0); Eosinophil (Absolute #) 0.52 x10^3/uL (0-0.5); Hemoglobin 11.5 g/dL (12.5-18.0); Lymphocyte (Absolute #) 1.36 x10^3/uL (1.0-4.6); Lymphocytes % 6.5 % (24.0-44.0); Mean Cell Volume 93.9 fL (78-100); Mean Corpuscular Hemoglobin 31.8 pg (26-32); Mean Corpuscular Hgb Concent. 33.8 g/dL (32-36); Mean Platelet Volume 10.7 fL (7.5-11.0); Monocyte (Absolute #) 1.27 x10^3/uL (0.0-1.3); Neutrophil % 80.7 % (36.0-66.0); Platelet Count 261 x10^3/uL (150-450); Red Blood Count 3.62 x10^6/uL (4.1-5.6); Red Cell Distribution Width 20.3 % (11.5-14.0); White Blood Count 21.1 x10^3/uL (4.0-10.5)
[2022-08-28] MEDS ORDERED: Vitamin K 10 MG/ML ONE (16:50)
[2022-08-28 17:04] LABS: ALBUMIN 4.1 g/dL (3.5-5.0); ALKALINE PHOSPHATASE 299 U/L (38-126); ANION GAP 14.8 MEQ/L (5-15); BLOOD UREA NITROGEN 4 mg/dL (9-20); CHLORIDE 102 mmol/L (98-107); Calcium 8.6 mg/dL (8.4-10.2); Carbon Dioxide 23 mmol/L (22-30); EST GLOMERULAR FILTRATION RATE > 60.0 ML/MIN; Glucose 101 mg/dL (74-106); Potassium 4.6 mmol/L (3.5-5.1); SGOT/AST 193 U/L (17-59); SGPT/ALT 56 U/L (0-50); SODIUM 135 mmol/L (137-145); Total Protein 8.2 g/dL (6.3-8.2)
[2022-08-28 18:03] LABS: INR 1.65 (0.8-3.0); PROTIME 16.7 SECONDS (9.4-12.5)
== END 2022-08-28 17:54 | disposition home or self-care (01) ==
LOC: ED 16:05
DX: D69.9 Hemorrhagic condition, unspecified (principal); E80.6 Other disorders of bilirubin metabolism; I10 Essential (primary) hypertension; Z79.899 Other long term (current) drug therapy; Z28.310 Unvaccinated for COVID-19
CPT/HCPCS: 36415; 80053; 85025; 85610; 96374; 99283; 99291; J3430

== ENCOUNTER 2022-09-30 06:03 | Day surgery (SDC) | payer OTHER ==
[2022-09-30] MEDS ORDERED: Versed 2 MG/2 ML Injection IV ONE (06:46)
[2022-09-30] MEDS ORDERED: Lactated Ringers 1,000 ML IV SCH (07:00)
[2022-09-30] MEDS ORDERED: Versed 2 MG/2 ML Injection ONE (07:32)
[2022-09-30] MEDS ORDERED: Lactated Ringers 1,000 ML IV ONE (07:32)
[2022-09-30] MEDS ORDERED: Xylocaine 1% Vial 30 ML PF IJ ONE (07:32)
[2022-09-30] MEDS ORDERED: CEFAZOLIN 2 GM-D5W BAG** 2 GM/50 ML ML IV SCH (08:00)
--- NOTE | 2022-09-30 09:30 | XRAY ---
Indication: Right foot 2nd and 4th metatarsal bone biopsy. Intraoperative fluoroscopy provided for 14 seconds. 6 digital spot images submitted for interpretation demonstrates percutaneous bone biopsy needles projecting over distal 2nd and 4th metatarsals. Correlate with intraoperative findings/report.
[2022-09-30 09:32] VITALS: O2SAT 97
[2022-09-30 09:34] VITALS: BP 137/98; PULSE 123
--- NOTE | 2022-09-30 12:35 | XRAY ---
14 seconds fluoroscopy time in surgery for biopsies of the 2nd and 4th metatarsals of the right foot.
--- NOTE | 2022-10-03 10:36 | OP ---
SURGERY DATE/TIME: 09/30/2022 0823 PREOPERATIVE DIAGNOSES: 1) Osteomyelitis of the second through fifth metatarsals. 2) Right foot pain. 3) Open fracture right foot, chronic presentation. 4) Pain right foot. POSTOPERATIVE DIAGNOSES: 1) Osteomyelitis of the second through fifth metatarsals. 2) Right foot pain. 3) Open fracture right foot, chronic presentation. 4) Pain right foot. PROCEDURE: Trocar bone biopsies of second and fourth metatarsals right foot. SURGEON: Petros Holman DPM. DERRICK BOAT LEVER OPERATOR: None. ANESTHESIA: Local. HEMOSTASIS: Pressure dressing. ESTIMATED BLOOD LOSS: Less than 5 cc. MATERIALS: 3-0 Nylon. INJECTABLES: 40 cc of 1:1 mixture of 1% lidocaine plain and 0.5% bupivacaine plain injected in ankle block-type fashion preoperatively. INDICATION FOR SURGERY: Reilly is a very pleasant 27-year-old male who presented to my service several months ago with concerns of a chronic and delayed presentation of an open fracture. The patient was having a significant amount of pain approximately two months after the injury to his right foot where his foot was pinned at work between a work vehicle and a wall this resulted in fractures of the fourth metatarsal and also an open wound to the dorsal aspect of his foot. This was being treated by an infectious disease provider who sent him to my service after having failed two courses of antibiotics without any resolution of the symptomatology. At this time MRI's have been taken one approximately two months ago and one approximately two weeks ago demonstrating the possibility of osteomyelitis in the bones. The patient's clinical history supports that this may be the case. However the patient is particularly young and does have some health complications that delayed us proceeding with assessment. MRI has been inconclusive. However, the patient does have an adequate clinical history to support proceeding with a bone biopsy as this is the gold standard in having the highest sensitivity of getting a final answer in regards to the patient's chronic pain to the right foot as well as if there truly is bone infection to be treated at this time. The patient understands all risks, complications and benefits of surgical intervention. He understands these risks and wishes to proceed. No guarantees were provided as to the outcome. It is with that we proceed. DESCRIPTION OF PROCEDURE AND FINDINGS: The patient is brought into the OR and placed on the OR table in the supine position. At this time the right foot was prepped and draped in the typical sterile fashion and lowered onto the surgical field. A block consisting of 40 cc of a 1:1 mixture of 1% lidocaine plain and 0.5% bupivacaine plain was injected in an ankle block-type fashion to the right ankle. Following this, a trocar bone biopsy was obtained using a Jamshidi needle to the fourth metatarsal just proximal to the fracture site. Again, this was taken out and bone was handed off the field for pathologic assessment. Following this, another bone biopsy was taken from the second metatarsal at the metatarsal neck this was handed off the field and sent for pathologic and microbiologic assessment. At this time, a horizontal mattress suture was introduced to both of these incision sites. A pressure dressing consisting of iodine, Adaptic, 4x4, Kerlix and CHESTER was applied to the patient's right extremity. The patient was then returned to the preoperative assessment area with vital signs stable and vascular status intact. Postoperative orders as indicated in the patient's discharge chart.
== END 2022-09-30 09:55 | disposition home or self-care (01) ==
LOC: SDC 06:03
PROVIDERS: ATTEND Podiatrist Foot & Ankle Surgery
DX: M86.8X7 Other osteomyelitis, ankle and foot (principal); M79.671 Pain in right foot; S92.331B Displaced fracture of third metatarsal bone, right foot, initial encounter for open fracture
CPT/HCPCS: 20220; 73630; 76000; J0690; J2001; J2250

== ENCOUNTER 2022-11-18 22:23 | Emergency (ER) | payer OTHER ==
[2012-10-13 13:30] VITALS: BP 150/89
== END 2022-11-18 22:45 | disposition left against medical advice (07) ==
LOC: ED 22:23
DX: Z53.21 Procedure and treatment not carried out due to patient leaving prior to being seen by health care provider (principal)

== ENCOUNTER 2023-01-10 14:48 | Emergency (ER) | payer MEDICAID, OTHER ==
[2023-01-10] MEDS ORDERED: Adenocard IV 6 MG/2 ML IV ONE ×5 (14:53→15:10)
[2023-01-10] MEDS ORDERED: Sodium Chloride 0.9% 1000 ML 1,000 ML ONE (14:54)
[2023-01-10 14:59] VITALS: O2SAT 99
[2023-01-10] MEDS ORDERED: LOPRESSOR INJECTION IV ONE ×6 (15:05→16:05)
[2023-01-10] MEDS ORDERED: Sodium Chloride 0.9% 1000 ML 1,000 ML IV STA (15:08)
[2023-01-10 15:16] LABS: Absolute Neutrophil Ct (ANC) 11.49 x10^3/uL (1.4-6.9); BASOPHIL % 0.5 % (0.0-0.4); Basophil (Absolute #) 0.07 x10^3/uL (0-0.4); Eosinophil % 2.4 % (0.00-5.0); Eosinophil (Absolute #) 0.33 x10^3/uL (0-0.5); Hematocrit 40.3 % (42-50); Hemoglobin 13.3 g/dL (12.5-18.0); IMMATURE GRAN # 0.07 x10^3u/L (0.00-0.03); IMMATURE GRAN % 0.5 % (0.00-0.4); Lymphocyte (Absolute #) 1.38 x10^3/uL (1.0-4.6); Lymphocytes % 9.9 % (24.0-44.0); Mean Cell Volume 100.2 fL (78-100); Mean Corpuscular Hemoglobin 33.1 pg (26-32); Mean Platelet Volume 11.8 fL (7.5-11.0); Monocyte (Absolute #) 0.56 x10^3/uL (0.0-1.3); Neutrophil % 82.7 % (36.0-66.0); Red Blood Count 4.02 x10^6/uL (4.1-5.6); Red Cell Distribution Width 14.8 % (11.5-14.0); White Blood Count 13.9 x10^3/uL (4.0-10.5)
[2023-01-10 15:33] LABS: D-DIMER QUANTITATIVE 0.31 mg/L (0.0-0.50); INR 1.13 (0.8-3.0); PROTIME 12.2 SECONDS (9.4-12.5)
[2023-01-10 15:38] LABS: ALBUMIN 4.3 g/dL (3.5-5.0); ALKALINE PHOSPHATASE 129 U/L (38-126); BLOOD UREA NITROGEN 16 mg/dL (9-20); CHLORIDE 106 mmol/L (98-107); Carbon Dioxide 22 mmol/L (22-30); Creatinine 1 0.88 mg/dL (0.66-1.25); EST GLOMERULAR FILTRATION RATE > 60.0 ML/MIN; Glucose 148 mg/dL (74-106); LIPASE 321 U/L (23-300); MAGNESIUM 1.5 mg/dL (1.6-2.3); NT PRO BNPII < 20.0 pg/mL (<300); Potassium 3.9 mmol/L (3.5-5.1); SGOT/AST 112 U/L (17-59); SGPT/ALT 104 U/L (0-50); SODIUM 140 mmol/L (137-145)
[2023-01-10 16:25] LABS: Platelet Count 144 x10^3/uL (150-450)
--- NOTE | 2023-01-10 16:27 | XRAY ---
Indication: Chest pain. Comparison: July 21, 2021 Portable chest demonstrates new subtle hazy infrahilar infiltrate versus atelectasis without consolidation/large effusion. Remaining heart, left lung, and bony thorax unremarkable.
--- NOTE | 2023-01-10 16:35 | ERPHSYRPT ---
- History of Present Illness Time Seen by Provider: 01/10/23 15:15 Historian: patient, family Exam Limitations: no limitations Patient Subjective Stated Complaint: pt here for fast heart rate and chest pain since about 1330. Triage Nursing Assessment: pt alert, walked in resp easy, skin warm/dry and juandice, pt is dealing with liver issues, has boot from right foot, states has a freacture, chest clear Physician History: Patient is a 27-year-old male who had a work injury where he fractured his right foot. Since that time he has been hospitalized at [facility] for problems with the therapy and according to the an overdose of some sort of medication that messed up his heart rate. He also reports that he has been jaundiced and liver functions are elevated and he is followed by a corner block cutter for that in [place]. This evening he presents with substernal pleuritic chest pain. This has been going on he says since he was in the hospital at [facility] he says his normal heart rate is 125-135 but this evening or this afternoon is even a bit higher than normal. Timing/Duration: constant Activities at Onset: none Quality: pressure, sharpness Location: substernal Chest Pain Radiation: no radiation Severity of Pain-Max: moderate Severity of Pain-Current: none Modifying Factors: Improves With: breathing, movement Associated Symptoms: hurts to breathe Prior Chest Pain/Cardiac Workup: echocardiography Nitro Today/Relief: no nitro taken today Aspirin Treatment Today: no aspirin today Allergies/Adverse Reactions: No Known Drug Allergies Allergy (Verified 01/10/23 14:52) Home Medications: Potassium Chloride 10 meq PO DAILY 01/10/23 [History] Prednisone 10 mg [Deltasone 10 mg] 10 mg PO DAILY 01/10/23 [History] Hx Tetanus, Diphtheria Vaccination/Date Given: Yes Hx Influenza Vaccination/Date Given: No Hx Pneumococcal Vaccination/Date Given: No Immunizations Up to Date: Yes Travel Risk - International Travel Have you traveled outside of the country in past 3 weeks: No - Coronavirus Screening Are you exhibiting any of the following symptoms?: No Close contact with a COVID-19 positive Pt in past 14-21 Days: No - Vaccine Status Have you recieved a Covid-19 vaccination: No - Review of Systems Constitutional: No Fever, No Chills Eyes: No Symptoms Ears, Nose, & Throat: No Symptoms Respiratory: No Cough, No Dyspnea Cardiac: Chest Pain, Palpitations, No Edema, No Syncope Abdominal/Gastrointestinal: No Abdominal Pain, No Nausea, No Vomiting, No Diarrhea Genitourinary Symptoms: No Dysuria Musculoskeletal: No Back Pain, No Neck Pain Skin: No Rash Neurological: No Dizziness, No Focal Weakness, No Sensory Changes Psychological: No Symptoms Endocrine: No Symptoms All Other Systems: Reviewed and Negative - Past Medical History Pertinent Past Medical History: No Neurological History: No Pertinent History ENT History: No Pertinent History Cardiac History: Arrhythmia, Hypertension Respiratory History: No Pertinent History Endocrine Medical History: No Pertinent History Musculoskeletal History: Fractures GI Medical History: Other History: No Pertinent History Psycho-Social History: No Pertinent History Male Reproductive Disorders: No Pertinent History Other Medical History: HEART MURMUR, Fx to rt foot, wound to rt foot.liver issues - Past Surgical History Past Surgical History: Yes Neuro Surgical History: No Pertinent History Cardiac: No Pertinent History Respiratory: No Pertinent History Gastrointestinal: No Pertinent History Genitourinary: No Pertinent History Musculoskeletal: No Pertinent History Male Surgical History: No Pertinent History Other Surgical History: PICC Line - Social History Smoking Status: Never smoker Exposure to second hand smoke: No Drug Use: none Patient Lives Alone: No - Nursing Vital Signs Nursing Vital Signs: Initial Vital Signs Temperature 97.2 F 01/10/23 14:58 Pulse Rate 153 H 01/10/23 14:58 Respiratory Rate 18 01/10/23 14:58 Blood Pressure 155/98 01/10/23 14:58 O2 Sat by Pulse Oximetry 99 01/10/23 14:58 Pain Scale Pain Intensity 0 - Physical Exam General Appearance: mild distress, alert Eye Exam: PERRL/EOMI, eyes nml inspection, scleral icterus Ears, Nose, Throat Exam: normal ENT inspection, moist mucous membranes Neck Exam: normal inspection, non-tender, supple, full range of motion Respiratory Exam: normal breath sounds, lungs clear, No respiratory distress Cardiovascular Exam: normal heart sounds, tachycardia Gastrointestinal/Abdomen Exam: soft, No tenderness, No mass Back Exam: normal inspection, No CVA tenderness, No vertebral tenderness Extremity Exam: normal inspection, normal range of motion Neurologic Exam: alert, oriented x 3, cooperative, normal mood/affect, sensation nml, No motor deficits Skin Exam: warm, dry, jaundice SpO2 Interpretation: normal SpO2: 99 O2 Delivery: Room Air - Course Nursing assessment & vital signs reviewed: Yes EKG Interpreted by Me: Sinus Tach, NORMAL AXIS, Non-specific ST Changes - Radiology Exams Chest X-ray Interpretation: Reviewed by me Ordered Tests: Active Orders 24 hr Category Date Time Status Swimming Pool Attendant STAT Care 01/10/23 15:14 Active EKG-ER Only STAT Care 01/10/23 15:08 Active IV Insertion STAT Care 01/10/23 15:11 Active IV Insertion-2nd Peripheral STAT Care 01/10/23 15:11 Active CHEST 1 VIEW (PORTABLE) Stat Exams 01/10/23 15:09 Completed CBC W DIFF Stat Lab 01/10/23 15:00 Completed CMP Stat Lab 01/10/23 15:00 Completed D-DIMER QUANTITATIVE Stat Lab 01/10/23 15:00 Completed LIPASE Stat Lab 01/10/23 15:00 Completed Lactic Acid Stat Lab 01/10/23 15:08 Completed MAGNESIUM Stat Lab 01/10/23 15:00 Completed NT PRO BNPII Stat Lab 01/10/23 15:00 Completed PROTIME WITH INR Stat Lab 01/10/23 15:00 Completed TROPONIN Q4H Lab 01/10/23 15:00 Completed TROPONIN Q4H Lab 01/10/23 19:15 Ordered TROPONIN Q4H Lab 01/10/23 23:15 Ordered UA W/RFX UR CULTURE Stat Lab 01/10/23 15:09 Ordered Urine Triage Profile Stat Lab 01/10/23 15:09 Ordered Medication Summary Discontinued Medications Generic Name Dose Route Start Last Admin Trade Name Bryq PRN Reason Stop Dose Admin Adenosine Confirm 01/10/23 14:53 Adenosine 6 Mg/2 Ml Vial Administered 01/10/23 14:54 Dose 12 mg IV .STK-MED ONE Adenosine Confirm 01/10/23 15:00 Adenosine 6 Mg/2 Ml Vial Administered 01/10/23 15:01 Dose 6 mg IV .STK-MED ONE Adenosine 12 mg 01/10/23 15:06 01/10/23 15:25 Adenosine 6 Mg/2 Ml Vial IV 01/10/23 15:07 Not Given STAT ONE Adenosine 12 mg 01/10/23 15:10 01/10/23 15:01 Adenosine 6 Mg/2 Ml Vial IV 01/10/23 15:11 12 mg STAT ONE Administration Adenosine 6 mg 01/10/23 15:08 01/10/23 14:57 Adenosine 6 Mg/2 Ml Vial IV 01/10/23 15:09 6 mg STAT ONE Administration Sodium Chloride Confirm 01/10/23 14:54 Sodium Chloride 0.9% 1000 Ml Administered 01/10/23 14:55 Dose 1,000 mls @ ud .ROUTE .STK-MED ONE Sodium Chloride 1,000 mls @ 999 mls/hr 01/10/23 15:08 01/10/23 16:21 Sodium Chloride 0.9% 1000 Ml IV 01/10/23 16:08 Infused .Q1H1M STA Infusion Metoprolol Tartrate Confirm 01/10/23 15:05 Metoprolol Tartrate 5 Mg/5 Ml Vial Administered 01/10/23 15:06 Dose 5 mg IV .STK-MED ONE Metoprolol Tartrate 5 mg 01/10/23 15:08 01/10/23 15:10 Metoprolol Tartrate 5 Mg/5 Ml Vial IV 01/10/23 15:09 5 mg STAT ONE Administration Metoprolol Tartrate 5 mg 01/10/23 15:20 01/10/23 15:23 Metoprolol Tartrate 5 Mg/5 Ml Vial IV 01/10/23 15:21 5 mg STAT ONE Administration Metoprolol Tartrate Confirm 01/10/23 15:21 Metoprolol Tartrate 5 Mg/5 Ml Vial Administered 01/10/23 15:22 Dose 5 mg IV .STK-MED ONE Metoprolol Tartrate 5 mg 01/10/23 15:52 01/10/23 16:07 Metoprolol Tartrate 5 Mg/5 Ml Vial IV 01/10/23 15:53 5 mg STAT ONE Administration Metoprolol Tartrate Confirm 01/10/23 16:05 Metoprolol Tartrate 5 Mg/5 Ml Vial Administered 01/10/23 16:06 Dose 5 mg IV .STK-MED ONE Lab/Rad Data: Laboratory Result Diagrams 01/10/23 15:00 01/10/23 15:00 Laboratory Results 01/10/23 01/10/23 01/10/23 Range/Units 15:08 15:00 15:00 WBC (4.0-10.5) x10^3/uL RBC (4.1-5.6) x10^6/uL Hgb (12.5-18.0) g/dL Hct (42-50) % MCV (78-100) fL MCH (26-32) pg MCHC (32-36) g/dL RDW (11.5-14.0) % Plt Count (150-450) x10^3/uL MPV (7.5-11.0) fL Gran % (36.0-66.0) % Immature Gran % (Auto) (0.00-0.4) % Nucleat RBC Rel Count (0.00-0.1) % Eos # (Auto) (0-0.5) x10^3/uL Immature Gran # (Auto) (0.00-0.03) x10^3u/L Absolute Lymphs (auto) (1.0-4.6) x10^3/uL Absolute Monos (auto) (0.0-1.3) x10^3/uL Absolute Nucleated RBC (0.00-0.01) x10^3u/L Lymphocytes % (24.0-44.0) % Monocytes % (0.0-12.0) % Eosinophils % (0.00-5.0) % Basophils % (0.0-0.4) % Absolute Granulocytes (1.4-6.9) x10^3/uL Basophils # (0-0.4) x10^3/uL PT 12.2 (9.4-12.5) SECONDS INR 1.13 (0.8-3.0) D-Dimer 0.31 (0.0-0.50) mg/L Sodium (137-145) mmol/L Potassium (3.5-5.1) mmol/L Chloride (98-107) mmol/L Carbon Dioxide (22-30) mmol/L Anion Gap (5-15) MEQ/L BUN (9-20) mg/dL Creatinine (0.66-1.25) mg/dL Estimated GFR ML/MIN Glucose (74-106) mg/dL Lactic Acid 2.0 (0.4-2.0) Calcium (8.4-10.2) mg/dL Magnesium (1.6-2.3) mg/dL Total Bilirubin (0.2-1.3) mg/dL AST (17-59) U/L ALT (0-50) U/L Alkaline Phosphatase (38-126) U/L Troponin I < 0.012 (0.000-0.034) ng/mL NT-Pro-B Natriuret Pep (<300) pg/mL Serum Total Protein (6.3-8.2) g/dL Albumin (3.5-5.0) g/dL Lipase (23-300) U/L 01/10/23 01/10/23 Range/Units 15:00 15:00 WBC 13.9 H (4.0-10.5) x10^3/uL RBC 4.02 L (4.1-5.6) x10^6/uL Hgb 13.3 (12.5-18.0) g/dL Hct 40.3 L (42-50) % MCV 100.2 H (78-100) fL MCH 33.1 H (26-32) pg MCHC 33.0 (32-36) g/dL RDW 14.8 H (11.5-14.0) % Plt Count 144 L (150-450) x10^3/uL MPV 11.8 H (7.5-11.0) fL Gran % 82.7 H (36.0-66.0) % Immature Gran % (Auto) 0.5 H (0.00-0.4) % Nucleat RBC Rel Count 0.0 (0.00-0.1) % Eos # (Auto) 0.33 (0-0.5) x10^3/uL Immature Gran # (Auto) 0.07 H (0.00-0.03) x10^3u/L Absolute Lymphs (auto) 1.38 (1.0-4.6) x10^3/uL Absolute Monos (auto) 0.56 (0.0-1.3) x10^3/uL Absolute Nucleated RBC 0.00 (0.00-0.01) x10^3u/L Lymphocytes % 9.9 L (24.0-44.0) % Monocytes % 4.0 (0.0-12.0) % Eosinophils % 2.4 (0.00-5.0) % Basophils % 0.5 (0.0-0.4) % Absolute Granulocytes 11.49 H (1.4-6.9) x10^3/uL Basophils # 0.07 (0-0.4) x10^3/uL PT (9.4-12.5) SECONDS INR (0.8-3.0) D-Dimer (0.0-0.50) mg/L Sodium 140 (137-145) mmol/L Potassium 3.9 (3.5-5.1) mmol/L Chloride 106 (98-107) mmol/L Carbon Dioxide 22 (22-30) mmol/L Anion Gap 16.0 H (5-15) MEQ/L BUN 16 (9-20) mg/dL Creatinine 0.88 (0.66-1.25) mg/dL Estimated GFR > 60.0 ML/MIN Glucose 148 H (74-106) mg/dL Lactic Acid (0.4-2.0) Calcium 11.0 H (8.4-10.2) mg/dL Magnesium 1.5 L (1.6-2.3) mg/dL Total Bilirubin 4.30 H (0.2-1.3) mg/dL AST 112 H (17-59) U/L ALT 104 H (0-50) U/L Alkaline Phosphatase 129 H (38-126) U/L Troponin I (0.000-0.034) ng/mL NT-Pro-B Natriuret Pep < 20.0 (<300) pg/mL Serum Total Protein 8.0 (6.3-8.2) g/dL Albumin 4.3 (3.5-5.0) g/dL Lipase 321 H (23-300) U/L - Progress Progress: improved Air Movement: good Blood Culture(s) Obtained: No Antibiotics given: No Medical Desision Making - Independent Historian Additional History obtained from: Spouse - Diagnostic Testing Diagnostic test were ordered, analyzed, and reviewed by me: Yes Radiological Interpretation: Reviewed by me - Risk of complications The pt has a mod risk of morbidity or mortality based on: Need for prescription drug management - Departure Departure Disposition: Home Clinical Impression: Sinus tachycardia Condition: Stable Critical Care Time: Yes Critical Care Time(excluding separately billable procedures): Critical 30-74 mins (45) Referrals: DOCTOR,NO FAMILY [Primary Care Provider] - Follow up/PCP as directed Instructions: Chest Pain (DC), Sinus Tachycardia (DC) Prescriptions: Metoprolol Tartrate 50 mg [Lopressor 50 MG] 50 mg PO BID 30 Days #60 tablet
[2023-01-10 16:51] VITALS: BP 131/87; PULSE 104
== END 2023-01-10 16:56 | disposition home or self-care (01) ==
LOC: ED 14:48
DX: R00.0 Tachycardia, unspecified (principal); R07.81 Pleurodynia; I10 Essential (primary) hypertension; Z79.52 Long term (current) use of systemic steroids; Z28.310 Unvaccinated for COVID-19
CPT/HCPCS: 36000; 36415; 71045; 80053; 83605; 83690; 83735; 83880; 84484; 85025; 85379; 85610; 93005; 93041; 96360; 96374; 96375; 96376; 99284; 99291; J0153

== ENCOUNTER 2023-03-01 04:00 | Emergency (ER) | payer OTHER ==
[2023-03-01 04:17] VITALS: O2SAT 98
--- NOTE | 2023-03-01 04:47 | ERPHSYRPT ---
- History of Present Illness Time Seen by Provider: 03/01/23 04:47 Source: patient Exam Limitations: no limitations Patient Subjective Stated Complaint: pt states "I was walking down the driveway and the next thing I know my ankle twisted" Triage Nursing Assessment: pt to room 8 via wheelchair with father present. pt is alert and oriented times three, able to move all extremities, speaks in complete sentences, and with resp even and unlabored. pt able to minimally bear weight on right foot to get into bed. pedal pulse palpable, good cap refill, denies numbness/ tingling, able to wiggle toes. no wounds, deformities, or bruising noted. swelling noted to later aspect of right foot. Physician History: Patient is a 27-year-old male presents to our ED for evaluation of right lateral foot pain. Patient states he was walking down a driveway and inverted his foot. Patient has pain and swelling to the lateral aspect of the right foot. Overlying soft tissue intact. No other injuries reported. Pain described as an ache that is localized. Pain worse with weightbearing and improved with rest. Father at bedside. Patient voices no other complaints or concerns at this time. Patient states that he previously had his right foot run over by a forklift. Patient currently receiving physical therapy to the involved foot. Portions of this note were created with voice recognition technology. There may be grammatical, spelling, punctuation or sound alike errors Method of Injury: twisted Occurred: just prior to arrival Quality: constant Severity of Pain-Max: moderate Severity of Pain-Current: mild Lower Extremities Pain: foot: right Modifying Factors: Improves With: movement (Movement palpation reproduces pain) Associated Symptoms: none Allergies/Adverse Reactions: No Known Drug Allergies Allergy (Verified 01/10/23 14:52) Hx Tetanus, Diphtheria Vaccination/Date Given: Yes Hx Influenza Vaccination/Date Given: No Hx Pneumococcal Vaccination/Date Given: No Immunizations Up to Date: Yes Travel Risk - International Travel Have you traveled outside of the country in past 3 weeks: No - Coronavirus Screening Are you exhibiting any of the following symptoms?: No Close contact with a COVID-19 positive Pt in past 14-21 Days: No - Vaccine Status Have you recieved a Covid-19 vaccination: No - Review of Systems Constitutional: No Symptoms, No Fever, No Chills Eyes: No Symptoms Ears, Nose, & Throat: No Symptoms Respiratory: No Symptoms, No Cough, No Dyspnea Cardiac: No Symptoms, No Chest Pain, No Edema, No Syncope Abdominal/Gastrointestinal: No Symptoms, No Abdominal Pain, No Nausea, No Vomiting, No Diarrhea Genitourinary Symptoms: No Symptoms, No Dysuria Musculoskeletal: No Symptoms, No Back Pain, No Neck Pain Skin: No Symptoms, No Rash Neurological: No Symptoms, No Dizziness, No Focal Weakness, No Sensory Changes Psychological: No Symptoms Endocrine: No Symptoms Hematologic/Lymphatic: No Symptoms Immunological/Allergic: No Symptoms All Other Systems: Reviewed and Negative - Past Medical History Pertinent Past Medical History: Yes Neurological History: No Pertinent History ENT History: No Pertinent History Cardiac History: Arrhythmia, Hypertension Respiratory History: No Pertinent History Endocrine Medical History: No Pertinent History Musculoskeletal History: Fractures GI Medical History: Other History: No Pertinent History Psycho-Social History: No Pertinent History Male Reproductive Disorders: No Pertinent History Other Medical History: HEART MURMUR, Fx to rt foot, wound to rt foot.liver issues - Past Surgical History Past Surgical History: Yes Neuro Surgical History: No Pertinent History Cardiac: No Pertinent History Respiratory: No Pertinent History Gastrointestinal: No Pertinent History Genitourinary: No Pertinent History Musculoskeletal: No Pertinent History, Other Male Surgical History: No Pertinent History Other Surgical History: PICC Line, right foot, right arm, left arm - Social History Smoking Status: Never smoker Exposure to second hand smoke: Yes Drug Use: none Patient Lives Alone: No - Nursing Vital Signs Nursing Vital Signs: Initial Vital Signs Temperature 98.0 F 03/01/23 04:08 Pulse Rate 122 H 03/01/23 04:08 Respiratory Rate 18 03/01/23 04:08 Blood Pressure 164/103 03/01/23 04:08 O2 Sat by Pulse Oximetry 98 03/01/23 04:08 Pain Scale Pain Intensity 8 - Physical Exam General Appearance: no apparent distress, alert Eyes, Ears, Nose, Throat Exam: moist mucous membranes Neck Exam: non-tender, supple Cardiovascular/Respiratory Exam: chest non-tender, normal breath sounds, regular rate/rhythm, no respiratory distress Gastrointestinal/Abdominal Exam: non-tender, guarding Back Exam: normal inspection, No vertebral tenderness Hips Exam: bilateral: non-tender, normal inspection, normal range of motion, no evidence of injury Legs Exam: bilateral leg: non-tender, normal inspection, normal range of motion, no evidence of injury Knees Exam: bilateral knee: non-tender, normal inspection, normal range of motion, no evidence of injury Ankle Exam: bilateral ankle: non-tender, normal inspection, normal range of motion, no evidence of injury Foot Exam: right foot: bone tenderness, pain, swelling, other (Right foot neurovascular intact distally. Compartments are soft. Cap refill less than 2 seconds.) Neuro/Tendon Exam: normal sensation, normal motor functions Mental Status Exam: alert, oriented x 3, cooperative Skin Exam: normal color, warm, dry SpO2 Interpretation: normal SpO2: 98 O2 Delivery: Room Air - Course Nursing assessment & vital signs reviewed: Yes - Radiology Exams Foot X-ray Interpretation: Interpreted by me (No fracture dislocation. Soft tissue swelling lateral foot) Ordered Tests: Active Orders 24 hr Category Date Time Status FOOT (MINIMUM 3 VIEWS) Stat Exams 03/01/23 04:18 Taken - Progress Progress: improved Progress Note: Patient a 27-year-old male presents to our ED with right foot pain. Patient twisted his foot while walking on a driveway. Physical exam reveals swelling to the lateral aspect of the right foot. Patient received ibuprofen for pain control. No fracture dislocations observed on x-ray. There is soft tissue swelling laterally physical exam otherwise unremarkable. Patient given bilateral axillary crutches. Patient referred to podiatry for further evaluation and treatment. Patient voices no other complaints or concerns at this time. Portions of this note were created with voice recognition technology. There may be grammatical, spelling, punctuation or sound alike errors Complexity of problem addressed is low, acute uncomplicated. Critical care time Complexity of data reviewed and analyzed is moderate. X-ray dependently reviewed and analyzed by Dr. Hill. Formal read pending Risk of complication and or risk morbidity/mortality of patient management is low. Patient given bilateral axillary crutches and ibuprofen for pain control. Patient discharged home. Patient agrees to follow-up in the orthopedic clinic within 48 hours for reevaluation. Portions of this note were created with voice recognition technology. There may be grammatical, spelling, punctuation or sound alike errors 03/01/23 04:55 Counseled pt/family regarding: diagnosis, need for follow-up, rad results - Departure Departure Disposition: Home Clinical Impression: Foot sprain Condition: Stable Critical Care Time: No Referrals: DOCTOR,NO FAMILY [Primary Care Provider] - Follow up/PCP as directed ZULEYKA BARRIGA MD [ACTIVE STAFF] - Follow up/PCP as directed Additional Instructions: Discharge/Care Plan ALFONSO BETTS JR was seen on 03/01/23 in the Emergency Room. The patient was counseled regarding Diagnosis,Lab results, Imaging studies, need for follow up and when to return to the Emergency Room. Prescriptions given: Discharge Note I have spoken with the patient and/or caregivers. I have explained the patient's condition, diagnosis and treatment plan based on the information available to me at this time. I have answered the patient's and/or caregiver's questions and addressed any concerns. The patient and/or caregivers have as good understanding of the patient's diagnosis, condition and treatment plan as can be expected at this point. The vital signs have been stable. The patient's condition is stable and appropriate for discharge from the emergency department. The patient will pursue further outpatient evaluation with the primary care physician or other designated or consulting physician as outlined in the discharge instructions. The patient and/or caregivers are agreeable to this plan of care and follow-up instructions have been explained in detail. The patient and/or caregivers have received these instruction. The patient/and or caregivers are aware that any significant change in condition or worsening of symptoms shou ld prompt an immediate return to this or the closest emergency department or call 911. Outpatient Orders: Ortho Referral Time Frame: 1 Day, Facility: [facility]. Hosp, Location: [facility]
[2023-03-01] MEDS ORDERED: MOTRIN 600 MG PO ONE (04:50)
[2023-03-01] MEDS ORDERED: MOTRIN 600 MG ONE (04:57)
[2023-03-01 05:04] VITALS: BP 126/103; PULSE 117
--- NOTE | 2023-03-01 09:04 | XRAY ---
Indication: Pain following injury. Comparison: August 02, 2022 3 nonweightbearing views right foot demonstrates old distal 4th metatarsal fracture with incidental tiny heel spur. No other bony, articular, or soft tissue abnormalities.
== END 2023-03-01 05:09 | disposition home or self-care (01) ==
LOC: ED 04:00
DX: S93.601A Unspecified sprain of right foot, initial encounter (principal); X50.0XXA Overexertion from strenuous movement or load, initial encounter; Y93.01 Activity, walking, marching and hiking; Y92.007 Garden or yard of unspecified non-institutional (private) residence as the place of occurrence of the external cause; Z28.310 Unvaccinated for COVID-19
CPT/HCPCS: 73630; 99283; A9270-GY

== ENCOUNTER 2023-03-14 04:34 | Emergency (ER) | payer OTHER ==
[2023-03-14 04:54] VITALS: O2SAT 95
[2023-03-14 05:06] VITALS: BP 104/69; PULSE 98
--- NOTE | 2023-03-14 05:13 | ERPHSYRPT ---
- History of Present Illness Time Seen by Provider: 03/14/23 04:51 Historian: patient, family Exam Limitations: no limitations Patient Subjective Stated Complaint: pt states "my right lateral side is killing me. they told me in [place] when I was in the hospital that I had 6 kidney stones but they didn't operate because they said I was too young." everytime pt mentions his history of kidney stones his dad corrects him by saying "you mean gall stones". Triage Nursing Assessment: pt ambulated into room independently with a slow steady gait. pt is alert and oriented times three, able to move all extremiteis, speaks in complete sentences, and with resp even and unlabored. pt is laughing and joking with his dad and doesn't exhibit any outward signs of pain or discomfort until he is asked then he frowns and holds his right side. informat ion provided per patient and father as dad answers questions for pt and interrupts him when he is speaking. pt keeps stating he had kidney stones diagnosed in Nov but dad corrects him to gall stones. Allergies/Adverse Reactions: No Known Drug Allergies Allergy (Verified 01/10/23 14:52) Home Medications: Metoprolol Tartrate 25 mg [Lopressor 25MG Tab] 25 mg PO BID 03/14/23 [History] Potassium Chloride [Klor-Con M20] 20 meq PO DAILY 03/14/23 [History] Hx Tetanus, Diphtheria Vaccination/Date Given: Yes Hx Influenza Vaccination/Date Given: No Hx Pneumococcal Vaccination/Date Given: No Immunizations Up to Date: Yes Travel Risk - International Travel Have you traveled outside of the country in past 3 weeks: No - Coronavirus Screening Are you exhibiting any of the following symptoms?: No Close contact with a COVID-19 positive Pt in past 14-21 Days: No - Vaccine Status Have you recieved a Covid-19 vaccination: No - Past Medical History Pertinent Past Medical History: Yes Neurological History: No Pertinent History ENT History: No Pertinent History Cardiac History: Arrhythmia, Hypertension Respiratory History: No Pertinent History Endocrine Medical History: No Pertinent History Musculoskeletal History: Fractures GI Medical History: Other History: No Pertinent History Psycho-Social History: No Pertinent History Male Reproductive Disorders: No Pertinent History Other Medical History: HEART MURMUR, Fx to rt foot, wound to rt foot.liver issues. - Past Surgical History Past Surgical History: Yes Neuro Surgical History: No Pertinent History Cardiac: No Pertinent History Respiratory: No Pertinent History Gastrointestinal: No Pertinent History Genitourinary: No Pertinent History Musculoskeletal: No Pertinent History, Other Male Surgical History: No Pertinent History Other Surgical History: PICC Line, right foot, right arm, left arm - Social History Smoking Status: Never smoker Exposure to second hand smoke: Yes Drug Use: none Patient Lives Alone: No - Nursing Vital Signs Nursing Vital Signs: Initial Vital Signs Blood Pressure 138/97 03/14/23 04:41 O2 Sat by Pulse Oximetry 94 L 03/14/23 04:41 Pain Scale Pain Intensity 6 - Physical Exam SpO2: 95 - Progress Progress Note: 03/14/23 05:08 [facility] [address], m - Departure Departure Disposition: [facility] ([facility]) Clinical Impression: Abdominal pain Condition: Stable Critical Care Time: No Referrals: DOCTOR,NO FAMILY [Primary Care Provider] - Follow up/PCP as directed
== END 2023-03-14 05:05 | disposition left against medical advice (07) ==
LOC: ED 04:34
DX: R10.9 Unspecified abdominal pain (principal); I10 Essential (primary) hypertension; Z79.899 Other long term (current) drug therapy; Z28.310 Unvaccinated for COVID-19
CPT/HCPCS: 99282

== ENCOUNTER 2023-03-27 04:32 | Emergency (ER) | payer OTHER ==
[2023-03-27] MEDS ORDERED: Sodium Chloride 0.9% 1000 ML 1,000 ML IV STA (05:10)
[2023-03-27] MEDS ORDERED: Sodium Chloride 0.9% 1000 ML 1,000 ML ONE (05:19)
[2023-03-27 05:33] LABS: Absolute Neutrophil Ct (ANC) 9.41 x10^3/uL (1.4-6.9); BASOPHIL % 0.6 % (0.0-0.4); Basophil (Absolute #) 0.08 x10^3/uL (0-0.4); Eosinophil % 2.8 % (0.00-5.0); Eosinophil (Absolute #) 0.36 x10^3/uL (0-0.5); Hematocrit 31.9 % (42-50); Hemoglobin 10.8 g/dL (12.5-18.0); IMMATURE GRAN # 0.09 x10^3u/L (0.00-0.03); IMMATURE GRAN % 0.7 % (0.00-0.4); Lymphocyte (Absolute #) 1.86 x10^3/uL (1.0-4.6); Lymphocytes % 14.4 % (24.0-44.0); Mean Cell Volume 92.2 fL (78-100); Mean Corpuscular Hemoglobin 31.2 pg (26-32); Mean Corpuscular Hgb Concent. 33.9 g/dL (32-36); Mean Platelet Volume 11.1 fL (7.5-11.0); Monocyte (Absolute #) 1.12 x10^3/uL (0.0-1.3); Monocytes % 8.7 % (0.0-12.0); Neutrophil % 72.8 % (36.0-66.0); Platelet Count 76 x10^3/uL (150-450); Red Blood Count 3.46 x10^6/uL (4.1-5.6); Red Cell Distribution Width 19.4 % (11.5-14.0); White Blood Count 12.9 x10^3/uL (4.0-10.5)
[2023-03-27 05:46] LABS: ACETAMINOPHEN < 10 ug/ml (10-30); ALBUMIN 3.7 g/dL (3.5-5.0); ALKALINE PHOSPHATASE 172 U/L (38-126); ANION GAP 15.7 MEQ/L (5-15); BLOOD UREA NITROGEN 10 mg/dL (9-20); CHLORIDE 107 mmol/L (98-107); Calcium 8.5 mg/dL (8.4-10.2); Carbon Dioxide 21 mmol/L (22-30); Creatinine 1 0.77 mg/dL (0.66-1.25); EST GLOMERULAR FILTRATION RATE > 60.0 ML/MIN; ETHYL ALCOHOL < 10 mg/dL (0-10); Glucose 94 mg/dL (74-106); MAGNESIUM 1.3 mg/dL (1.6-2.3); Potassium 3.5 mmol/L (3.5-5.1); SALICYLATE < 1.0 mg/dL (2-20); SGOT/AST 218 U/L (17-59); SGPT/ALT 45 U/L (0-50); SODIUM 140 mmol/L (137-145); Total Protein 7.2 g/dL (6.3-8.2)
[2023-03-27 05:58] LABS: Appearance Clear (Clear); Bacteria None Seen /HPF (None Seen); Bilirubin Large (Negative); Blood Negative (Negative); Epithelial Cells None Seen /HPF (None Seen); Glucose, Urine Negative (Negative); Hyaline Casts NONE SEEN /LPF (0-2); Ketones Negative (Negative); Leukocyte Esterase Trace (Negative); Nitrite Negative (Negative); Protein,Urine Dip Trace (Negative); RBC 0-2 /HPF (0-5); Specific Gravity 1.015 (1.005-1.030); WBC 0-2 /HPF (0-5)
[2023-03-27 06:09] LABS: Amphetamine,Urine NEGATIVE (NEGATIVE); Barbiturate,Urine NEGATIVE (NEGATIVE); Benzodiazepine,Urine NEGATIVE (NEGATIVE); Cocaine,Urine NEGATIVE (NEGATIVE); Methadone,Urine NEGATIVE (NEGATIVE); Opiate,Urine NEGATIVE (NEGATIVE); PCP,Urine NEGATIVE (NEGATIVE); THC,Urine NEGATIVE (NEGATIVE)
[2023-03-27 06:16] LABS: ADD URINE CULTURE? NO (NO)
--- NOTE | 2023-03-27 06:24 | XRAY ---
CLINICAL HISTORY:hallucinations COMPARISON:None; TECHNIQUES:Contiguous axial images without i.v. the contrast was obtained from the brain. Coronal and sagittal reformat images were also obtained. Images were reviewed in brain, subdural, and bone window settings; FINDINGS: Cortical sulci are normal in size and configuration. The brain parenchyma is normal in attenuation with no evidence of mass, hemorrhage, midline shift, hydrocephalus, extra-axial fluid, or acute infarction. The ventricles are symmetrical and normal in size. There is no transtentorial herniation or midline shift. There is no evidence of obstructing mass lesion. Basal ganglia and posterior fossa structures are normal. The basal cisterns, fourth ventricle, and foramen magnum are patent. Visualized paranasal sinuses are normal. Visualized mastoid air cells and orbits are normal. Soft tissues of the scalp are normal. There is no evidence of osseous fracture or aggressive appearing osseous lesion. IMPRESSION: No acute pathology. Unremarkable examination. Electronically Signed by: Pilar Nagel MD. (03/27/2023 05:17:35 [employer])
--- NOTE | 2023-03-27 06:26 | ERPHSYRPT ---
- History of Present Illness Time Seen by Provider: 03/27/23 04:55 Source: patient, old records, other (Friend who brought him in was an independent provider of information) Exam Limitations: no limitations Patient Subjective Stated Complaint: pt states he thinks he is severely dehydrated because he has been hearing voices, seeing things, and thinks he has been chased Triage Nursing Assessment: pt alert and oriented, answers questions approp. pt ambulates into room with steady gait noted. respirations nonlabored. skin jaundiced, warm and dry. sclera jaundiced. abd soft and nontender. pt reports hearing voices. thinking people are chasing him, and seeing people standing around his house Physician History: This is a 27-year-old white male alcoholic who presents with delusions, paranoia and hallucinations. Patient stopped drinking alcohol 2-2 and half weeks ago. Within the first few days he states that he knows he was having DTs and he got through that in the last few days he has been hearing voices, he states that he was chased by the devil, he thinks people are after him, and he states there are "ghost" around him at his home. He denies head injury. He denies headache, he denies chest pain, he denies shortness of breath, he denies abdominal pain. He has not had any recent nausea vomiting or diarrhea. Patient has a history of hypertension and low potassium. Patient has history of right foot crush injury and he was on long-term antibiotics for this. He had a PICC line in place and this was infected and it was removed several weeks ago. Patient has had significant liver problems, jaundice and has known alcoholic cirrhosis but he has never had the delusions, paranoia and hallucinations. He denies suicidal or homicidal ideation. Timing/Duration: day(s) (Last couple of days) Severity: moderate Associated Symptoms: denies symptoms Allergies/Adverse Reactions: No Known Drug Allergies Allergy (Verified 03/27/23 04:43) Home Medications: Metoprolol Tartrate 25 mg [Lopressor 25MG Tab] 25 mg PO BID 03/14/23 [History] Potassium Chloride [Klor-Con M20] 20 meq PO DAILY 03/14/23 [History] Hx Tetanus, Diphtheria Vaccination/Date Given: Yes Hx Influenza Vaccination/Date Given: No Hx Pneumococcal Vaccination/Date Given: No Immunizations Up to Date: Yes Travel Risk - International Travel Have you traveled outside of the country in past 3 weeks: No - Coronavirus Screening Are you exhibiting any of the following symptoms?: No Close contact with a COVID-19 positive Pt in past 14-21 Days: No - Vaccine Status Have you recieved a Covid-19 vaccination: No - Review of Systems Constitutional: No Symptoms Eyes: No Symptoms Ears, Nose, & Throat: No Symptoms Respiratory: No Symptoms Cardiac: No Symptoms Abdominal/Gastrointestinal: No Symptoms Genitourinary Symptoms: No Symptoms Musculoskeletal: No Symptoms Skin: Other (Jaundiced) Neurological: No No Symptoms, No Headache Psychological: Alcohol Abuse, Hallucinations, Other (Paranoia), No Suicidal Ideations, No Homicidal Ideations Endocrine: No Symptoms Hematologic/Lymphatic: No Symptoms Immunological/Allergic: No Symptoms All Other Systems: Reviewed and Negative - Past Medical History Pertinent Past Medical History: Yes Neurological History: No Pertinent History ENT History: No Pertinent History Cardiac History: Arrhythmia, Hypertension Respiratory History: No Pertinent History Endocrine Medical History: No Pertinent History Musculoskeletal History: Fractures GI Medical History: Gallbladder Disease, Other History: No Pertinent History Psycho-Social History: No Pertinent History Male Reproductive Disorders: No Pertinent History Other Medical History: HEART MURMUR, Fx to rt foot, wound to rt footliver issues. sinus tachycardia - Past Surgical History Past Surgical History: Yes Neuro Surgical History: No Pertinent History Cardiac: No Pertinent History Respiratory: No Pertinent History Gastrointestinal: No Pertinent History Genitourinary: No Pertinent History Musculoskeletal: No Pertinent History, Other Male Surgical History: No Pertinent History Other Surgical History: PICC Line, right foot - Social History Smoking Status: Never smoker Exposure to second hand smoke: No Drug Use: none Patient Lives Alone: No (hallucinations) - Nursing Vital Signs Nursing Vital Signs: Initial Vital Signs Temperature 98.1 F 03/27/23 04:44 Pulse Rate 111 H 03/27/23 04:44 Respiratory Rate 16 03/27/23 04:44 Blood Pressure 146/89 03/27/23 04:44 O2 Sat by Pulse Oximetry 99 03/27/23 04:44 Pain Scale Pain Intensity 4 - Physical Exam General Appearance: no apparent distress, alert, anxiety Eye Exam: PERRL/EOMI, scleral icterus Ears, Nose, Throat Exam: normal ENT inspection, moist mucous membranes Neck Exam: normal inspection, non-tender, supple, full range of motion Respiratory Exam: normal breath sounds, lungs clear, airway intact, No chest tenderness, No respiratory distress Cardiovascular Exam: tachycardia Gastrointestinal/Abdomen Exam: soft, normal bowel sounds, No tenderness Rectal Exam: not done Back Exam: normal inspection, normal range of motion, No CVA tenderness, No vertebral tenderness Extremity Exam: normal inspection, normal range of motion, pelvis stable Neurologic Exam: alert, oriented x 3, cooperative, quality control chemist II-XII nml as tested, normal mood/affect, nml cerebellar function, nml station & gait, sensation nml Skin Exam: warm, dry, jaundice Lymphatic Exam: adenopathy SpO2 Interpretation: normal SpO2: 99 O2 Delivery: Room Air - Course Nursing assessment & vital signs reviewed: Yes Ordered Tests: Active Orders 24 hr Category Date Time Status EKG-ER Only STAT Care 03/27/23 05:10 Active IV Insertion STAT Care 03/27/23 05:10 Active HEAD WITHOUT CONTRAST [CT] Stat Exams 03/27/23 05:03 Completed ACETAMINOPHEN Stat Lab 03/27/23 05:25 Completed CBC W DIFF Stat Lab 03/27/23 05:25 Completed CMP Stat Lab 03/27/23 05:25 Completed ETHYL ALCOHOL Stat Lab 03/27/23 05:25 Completed MAGNESIUM Stat Lab 03/27/23 05:25 Completed SALICYLATE Stat Lab 03/27/23 05:25 Completed UA W/RFX UR CULTURE Stat Lab 03/27/23 05:45 Completed Urine Triage Profile Stat Lab 03/27/23 05:45 Completed Medication Summary Discontinued Medications Generic Name Dose Route Start Last Admin Trade Name Arturo PRN Reason Stop Dose Admin Sodium Chloride 1,000 mls @ 999 mls/hr 03/27/23 05:10 03/27/23 05:20 Sodium Chloride 0.9% 1000 Ml IV 03/27/23 06:10 999 mls/hr .Q1H1M STA Administration Sodium Chloride Confirm 03/27/23 05:19 Sodium Chloride 0.9% 1000 Ml Administered 03/27/23 05:20 Dose 1,000 mls @ ud .ROUTE .STK-MED ONE Lab/Rad Data: Laboratory Result Diagrams 03/27/23 05:25 03/27/23 05:25 Laboratory Results 03/27/23 03/27/23 03/27/23 Range/Units 05:45 05:45 05:25 WBC (4.0-10.5) x10^3/uL RBC (4.1-5.6) x10^6/uL Hgb (12.5-18.0) g/dL Hct (42-50) % MCV (78-100) fL MCH (26-32) pg MCHC (32-36) g/dL RDW (11.5-14.0) % Plt Count (150-450) x10^3/uL MPV (7.5-11.0) fL Gran % (36.0-66.0) % Immature Gran % (Auto) (0.00-0.4) % Nucleat RBC Rel Count (0.00-0.1) % Eos # (Auto) (0-0.5) x10^3/uL Immature Gran # (Auto) (0.00-0.03) x10^3u/L Absolute Lymphs (auto) (1.0-4.6) x10^3/uL Absolute Monos (auto) (0.0-1.3) x10^3/uL Absolute Nucleated RBC (0.00-0.01) x10^3u/L Lymphocytes % (24.0-44.0) % Monocytes % (0.0-12.0) % Eosinophils % (0.00-5.0) % Basophils % (0.0-0.4) % Absolute Granulocytes (1.4-6.9) x10^3/uL Basophils # (0-0.4) x10^3/uL Sodium (137-145) mmol/L Potassium (3.5-5.1) mmol/L Chloride (98-107) mmol/L Carbon Dioxide (22-30) mmol/L Anion Gap (5-15) MEQ/L BUN (9-20) mg/dL Creatinine (0.66-1.25) mg/dL Estimated GFR ML/MIN Glucose (74-106) mg/dL Calcium (8.4-10.2) mg/dL Magnesium (1.6-2.3) mg/dL Total Bilirubin (0.2-1.3) mg/dL AST (17-59) U/L ALT (0-50) U/L Alkaline Phosphatase (38-126) U/L Ammonia 68 H (9-30) umol/L Serum Total Protein (6.3-8.2) g/dL Albumin (3.5-5.0) g/dL Urine Color Dark Yellow (Yellow) Urine Appearance Clear (Clear) Urine pH 8.0 (4.6-8.0) Ur Specific [place] 1.015 (1.005-1.030) Urine Protein Trace A (Negative) Urine Glucose (UA) Negative (Negative) mg/dL Urine Ketones Negative (Negative) Urine Blood Negative (Negative) Urine Nitrite Negative (Negative) Urine Bilirubin Large A (Negative) Urine Urobilinogen 4.0 A (0.2) mg/dL Ur Leukocyte Esterase Trace A (Negative) U Hyaline Cast (Auto) NONE SEEN (0-2) /LPF Urine Microscopic RBC 0-2 (0-5) /HPF Urine Microscopic WBC 0-2 (0-5) /HPF Ur Epithelial Cells None Seen (None Seen) /HPF Urine Bacteria None Seen (None Seen) /HPF Urine Culture Reflexed NO (NO) Salicylates (2-20) mg/dL Urine Opiates Level NEGATIVE (NEGATIVE) Ur Methadone NEGATIVE (NEGATIVE) Acetaminophen (10-30) ug/ml Urine Barbiturates NEGATIVE (NEGATIVE) Ur Phencyclidine (PCP) NEGATIVE (NEGATIVE) Urine Amphetamine NEGATIVE (NEGATIVE) U Benzodiazepine Level NEGATIVE (NEGATIVE) Urine Cocaine NEGATIVE (NEGATIVE) Urine Marijuana (THC) NEGATIVE (NEGATIVE) Ethyl Alcohol (0-10) mg/dL 03/27/23 03/27/23 Range/Units 05:25 05:25 WBC 12.9 H (4.0-10.5) x10^3/uL RBC 3.46 L (4.1-5.6) x10^6/uL Hgb 10.8 L (12.5-18.0) g/dL Hct 31.9 L (42-50) % MCV 92.2 (78-100) fL MCH 31.2 (26-32) pg MCHC 33.9 (32-36) g/dL RDW 19.4 H (11.5-14.0) % Plt Count 76 L (150-450) x10^3/uL MPV 11.1 H (7.5-11.0) fL Gran % 72.8 H (36.0-66.0) % Immature Gran % (Auto) 0.7 H (0.00-0.4) % Nucleat RBC Rel Count 0.0 (0.00-0.1) % Eos # (Auto) 0.36 (0-0.5) x10^3/uL Immature Gran # (Auto) 0.09 H (0.00-0.03) x10^3u/L Absolute Lymphs (auto) 1.86 (1.0-4.6) x10^3/uL Absolute Monos (auto) 1.12 (0.0-1.3) x10^3/uL Absolute Nucleated RBC 0.00 (0.00-0.01) x10^3u/L Lymphocytes % 14.4 L (24.0-44.0) % Monocytes % 8.7 (0.0-12.0) % Eosinophils % 2.8 (0.00-5.0) % Basophils % 0.6 (0.0-0.4) % Absolute Granulocytes 9.41 H (1.4-6.9) x10^3/uL Basophils # 0.08 (0-0.4) x10^3/uL Sodium 140 (137-145) mmol/L Potassium 3.5 (3.5-5.1) mmol/L Chloride 107 (98-107) mmol/L Carbon Dioxide 21 L (22-30) mmol/L Anion Gap 15.7 H (5-15) MEQ/L BUN 10 (9-20) mg/dL Creatinine 0.77 (0.66-1.25) mg/dL Estimated GFR > 60.0 ML/MIN Glucose 94 (74-106) mg/dL Calcium 8.5 (8.4-10.2) mg/dL Magnesium 1.3 L (1.6-2.3) mg/dL Total Bilirubin 14.30 H (0.2-1.3) mg/dL AST 218 H (17-59) U/L ALT 45 (0-50) U/L Alkaline Phosphatase 172 H (38-126) U/L Ammonia (9-30) umol/L Serum Total Protein 7.2 (6.3-8.2) g/dL Albumin 3.7 (3.5-5.0) g/dL Urine Color (Yellow) Urine Appearance (Clear) Urine pH (4.6-8.0) Ur Specific [place] (1.005-1.030) Urine Protein (Negative) Urine Glucose (UA) (Negative) mg/dL Urine Ketones (Negative) Urine Blood (Negative) Urine Nitrite (Negative) Urine Bilirubin (Negative) Urine Urobilinogen (0.2) mg/dL Ur Leukocyte Esterase (Negative) U Hyaline Cast (Auto) (0-2) /LPF Urine Microscopic RBC (0-5) /HPF Urine Microscopic WBC (0-5) /HPF Ur Epithelial Cells (None Seen) /HPF Urine Bacteria (None Seen) /HPF Urine Culture Reflexed (NO) Salicylates < 1.0 L (2-20) mg/dL Urine Opiates Level (NEGATIVE) Ur Methadone (NEGATIVE) Acetaminophen < 10 L (10-30) ug/ml Urine Barbiturates (NEGATIVE) Ur Phencyclidine (PCP) (NEGATIVE) Urine Amphetamine (NEGATIVE) U Benzodiazepine Level (NEGATIVE) Urine Cocaine (NEGATIVE) Urine Marijuana (THC) (NEGATIVE) Ethyl Alcohol < 10 (0-10) mg/dL - Progress Progress: unchanged Progress Note: 03/27/23 07:02 CT scan of the head shows no acute intracranial abnormality. This patient's medical issue is 1 of at least moderate complexity. The level of complexity and the work-up performed is based on review of the patient's past medical history and records, review of the patient's medication list, review of the patient's drug allergy list, history of present illness and physical findings on examination. The work-up in this patient includes alcohol level, urine drug screen, urinalysis, CBC, CMP, acetaminophen level, salicylate level, twelve-lead EKG, CT scan of the head and ammonia level. I reviewed the results of these studies. My recommendation to the patient is for him to be admitted into a facility where he can have both inpatient medical care and psychiatric e valuation and care. What brought the patient into the hospital was the hallucinations, delusions and paranoia that he started having over the last couple days. His medical condition and laboratory data have been worse over the last several weeks but he has never had these illusions, delusions and paranoia. The patient does not want admitted into any facility. He is not suicidal he is not homicidal. He is awake he is alert he is oriented. Patient states that he will contact [facility] today as an outpatient. He does not want to wait in the emergency department for the psychiatric consultation. I discussed with him the risk of his medical issue and the risks and benefits of waiting for further evaluation by [facility] in the emergency department. He refuses he understands and he will sign out AGAINST MEDICAL ADVICE. Counseled pt/family regarding: lab results, diagnosis, rad results Medical Desision Making - Diagnostic Testing Diagnostic test were ordered, analyzed, and reviewed by me: Yes Radiological Interpretation: Reviewed by me, Teleradiologist Report - Risk of complications The pt has a high risk of morbidity or mortality based on: Decision regarding hospitilization or escalation of hosp level of care - Departure Departure Disposition: AMA Clinical Impression: Jaundice, Hallucinations, Elevated liver enzymes, Paranoia Condition: Stable Critical Care Time: No Referrals: DOCTOR,NO FAMILY [NON-STAFF PHY W/O PRIVILEGES] - Follow up/PCP as directed
[2023-03-27 07:01] LABS: Slide Review 1 YES
[2023-03-27 07:05] VITALS: O2SAT 99
[2023-03-27 07:16] VITALS: BP 115/80; PULSE 106
== END 2023-03-27 07:20 | disposition left against medical advice (07) ==
LOC: ED 04:32
DX: F22 Delusional disorders (principal); R17 Unspecified jaundice; R94.5 Abnormal results of liver function studies; I10 Essential (primary) hypertension; Z79.899 Other long term (current) drug therapy; Z28.310 Unvaccinated for COVID-19
CPT/HCPCS: 36000; 36415; 70450; 80053; 80143; 80179; 80307; 81001; 82077; 82140; 83735; 85025; 93005; 99284